=== PATIENT | female | born 1995 | race Caucasian/White ===

== ENCOUNTER 2018-04-09 18:29 | Emergency (ER) | payer OTHER ==
[~2018-04-09] VITALS: Ht 154.9 cm; Wt 54.4 kg
== END 2018-04-09 20:50 | disposition home or self-care (01) ==
LOC: ER 18:29
DX: S30.871A Other superficial bite of abdominal wall, initial encounter (principal); S70.372A Other superficial bite of left thigh, initial encounter; W54.0XXA Bitten by dog, initial encounter; Y92.008 Other place in unspecified non-institutional (private) residence as the place of occurrence of the external cause; Z33.1 Pregnant state, incidental
CPT/HCPCS: 99283